=== PATIENT | male | born 1985 | race Caucasian/White ===

== ENCOUNTER 2019-02-06 16:10 | Emergency (ER) | payer OTHER ==
[~2019-02-06] VITALS: Ht 182.9 cm; Wt 82.6 kg
[2019-02-06 16:10] VITALS: BP_SYST 109
[2019-02-06 16:50] VITALS: BP_SYST 110
== END 2019-02-06 16:50 | disposition home or self-care (01) ==
LOC: SED 16:10
DX: H00.014 Hordeolum externum left upper eyelid (principal); Z88.0 Allergy status to penicillin
CPT/HCPCS: 99283